=== PATIENT | male | born 1940 | race Caucasian/White ===

== ENCOUNTER → 2016-06-29 10:43 | Outpatient (CLI) | payer MEDICARE, BC ==
--- NOTE | 2016-06-29 14:59 | NUR ---
Nutrition education for wt loss: S: Pt showed me his diet journal. Pts journal reveals pt is eating very little CHO during the day; chosing to follow a paleo style diet. Pt reports UBW is 165# and pt now weighs 144#. Pt has lost ~5# in the last 6 months. Pt is very active during the day. O: 75 year old male Ht: 6' Wt: 144# IBW: 178# +/-10% BMI:19.5 A: Pt has been burning fat for fuel due to eating very litte CHO following a paleo diet and being very active. Advised pt to start adding at least 45-60 gms of complex CHO to all meals and at least 15-30 CHO to at least 2 snacks every day. Explained to pt how CHO are the bodys prefered fuel source with fat being the second fuel source if CHO are not available. Reviewed good sources of complex CHO and reviewed corret portion sizes of CHO foods. Pt with good understanding of information provided. P: Provided pt with printed diet information and RDN name and phone number. RDN will be available if needed. Thank you for the consult.
== END | disposition home or self-care (01) ==
LOC: D.FANS 06-21 10:30
DX: R63.4 Abnormal weight loss (principal)

== ENCOUNTER 2017-12-21 08:31 | Emergency (ER) | payer MEDICARE ==
[~2017-12-21] VITALS: Ht 182.9 cm; Wt 64.5 kg
[2017-12-21 08:37] VITALS: Ht 182.9 cm; Wt 64.5 kg
[2017-12-21 09:23] VITALS: BP 124/58
== END 2017-12-21 09:21 | disposition home or self-care (01) ==
LOC: D.ER 08:31
DX: S01.112A Laceration without foreign body of left eyelid and periocular area, initial encounter (principal); W18.30XA Fall on same level, unspecified, initial encounter; Y93.89 Activity, other specified; Y92.019 Unspecified place in single-family (private) house as the place of occurrence of the external cause